=== PATIENT | male | born 1975 | race Caucasian/White ===

== ENCOUNTER → 2020-11-07 08:16 | Outpatient (REF) | payer BC, SELFPAY | LOC: ANHLAB 08:16 | PROVIDERS: PCP Family Medicine; Visit Provider Nurse Practitioner | DX: L57.0 Actinic keratosis (principal) | CPT/HCPCS: 88305 ==

== ENCOUNTER 2020-11-14 19:54 | Emergency (ER) | payer BC, SELFPAY ==
[2020-11-14 19:54] VITALS: BP 170/90; PULSE 105; RESP 20; TEMP 37.9; O2SAT 97
--- NOTE | 2020-11-14 20:02 | ED.GENADULT ---
HPI - General Adult General Chief complaint: Chest Pain Stated complaint: Chest pains Time Seen by Provider: 11/14/20 20:02 Source: patient and RN notes reviewed Mode of arrival: ambulatory Limitations: no limitations History of Present Illness HPI narrative: 45-year-old male presents with complaints of stabbing mid-sternum chest pain with intermittent radiating pain up neck and into left armpit, shortness of breath with activity for the past 6 hours. ?Isaias reports awakening at 02:00AM with the urge to have a bowel movement, sweating, and nausea. ?History of Hypertension, diabetes, and hypercholesteremia. Chest pain continued throughout the day with increasing fatigue, he remained in office with light activity. ?No treatment. ?No exacerbating factors expressed. ?No family history of sudden at age 36, maternal uncle, mother has had 2 [place] first at age 55. ?Denies fever or chills. Denies vomiting, diarrhea, or abdominal pain. ?Denies leg swelling, or dizziness. ?The patient reports he has not been diagnosed with COVID-19. The patient reports he is not waiting for the results of a COVID-19 lab test.??Denies recent traveling.? Denies concerns for COVID-19 or exposures.? At this time, the patient is not suspected of having COVID-19. Some parts of this dictation were generated by voice recognition software and may contain typographical and/or grammatical inaccuracies. Related Data Home Medications Medication Instructions Recorded Confirmed insulin aspart U-100 [Novolog 5 unit SUBCUT TID 11/14/20 11/14/20 U-100 Insulin aspart] insulin glargine [Lantus U-100 40 unit SUBCUT DAILY 11/14/20 11/14/20 Insulin] lisinopril 10 mg PO DAILY 11/14/20 11/14/20 Allergies Allergy/AdvReac Type Severity Reaction Status Date / Time acetaminophen [From Vicodin] Allergy Hallucinati Verified 11/14/20 20:02 ng hydrocodone [From Vicodin] Allergy Hallucinati Verified 11/14/20 20:02 ng Review of Systems Review of Systems: Narrative: CONSTITUTIONAL: Denies fever, chills, sweats. Complains of fatigue. EYES: Denies visual changes, redness, discharge. ENT: Denies rhinorrhea, congestion, sore throat, otalgia. CARDIOVASCULAR: Complains of stabbing mid-sternum chest pain with intermittent radiating pain up neck and into left armpit, diaphoresis. Denies palpitations, edema. RESPIRATORY: Complains of dyspnea on exertion. Denies wheezing, cough. GASTROINTESTINAL: Denies abdominal pain, nausea, vomiting, diarrhea. Complains of nausea. SKIN: Denies rash or itching. MUSCULOSKELETAL: Denies acute back pain or myalgia. NEUROLOGIC: Denies numbness or focal weakness. PSYCHIATRIC: Denies anxiety or depression. All systems reviewed & are unremarkable except as noted in HPI and below. [facility] Past Medical History Medical History (Updated 11/15/20 @ 00:00 by Ceferino Graves) Diabetes Hypercholesteremia Hypertension Surgical History Surgical History (Updated 11/14/20 @ 20:31 by LUL Larsen) No significant past surgical history Family History Family History (Updated 11/14/20 @ 20:33 by LUL Larsen) Father Cirrhosis Mother Acute myocardial infarction, Onset Age: 55 Second at age 65 3 weeks ago per Isaias Smoker COPD (chronic obstructive pulmonary disease) Unknown , at the age of 37 from a heart attack Acute myocardial infarction Social History Social History (Updated 11/15/20 @ 07:24 by LUL Larsen) Smoking status: Never smoker Tobacco type: cigarettes Second hand tobacco smoke exposure: No Alcohol intake: current Substance use: never Substance use type: does not use Living arrangements: with family Occupation/Education: occupation Gender identity (if verbalized by the patient): Male Sexual Orientation (if Verbalized by the Patient): Straight or Heterosexual Comments At time of signature, agree with the nurse past medical, surgica
--- NOTE | 2020-11-14 20:25 | ECG_ITS ---
Measurements Intervals [place] Rate: 106 P: 22 WA: 172 QRS: 89 QRSD: 74 T: 38 QT: 302 QTc: 401 Interpretive Statements SINUS TACHYCARDIA POSSIBLE LEFT ATRIAL ENLARGEMENT ABNORMAL ECG Electronically Signed On 11-15-2020 8:15:11 CDT by Conrad Brown D.O.
== END 2020-11-14 20:23 | disposition short-term general hospital (02) ==
PROVIDERS: Emergency Provider Nurse Practitioner Family
DX: R07.9 Chest pain, unspecified (principal); E11.9 Type 2 diabetes mellitus without complications; E78.00 Pure hypercholesterolemia, unspecified; I10 Essential (primary) hypertension; Z79.4 Long term (current) use of insulin
CPT/HCPCS: 93005; 99213; G0463

== ENCOUNTER → 2020-12-19 14:53 | Outpatient (REF) | payer BC, SELFPAY | LOC: ANHLAB 14:53 | PROVIDERS: PCP Family Medicine; Visit Provider Nurse Practitioner | DX: D22.72 Melanocytic nevi of left lower limb, including hip (principal) | CPT/HCPCS: 88305; 88342 ==

== ENCOUNTER → 2021-05-30 09:20 | Outpatient (CLI) | payer BC, SELFPAY ==
[2021-05-31 13:33] LABS: SARS-CoV-2 RNA PCR Positive
== END ==
PROVIDERS: PCP Family Medicine; Visit Provider Family Medicine
DX: U07.1 COVID-19 (principal)
CPT/HCPCS: C9803; U0003; U0005

== ENCOUNTER 2022-03-01 13:00 | Outpatient (NON) | payer BC, SELFPAY | END 2022-03-01 13:01 | disposition home or self-care (01) | PROVIDERS: PCP Family Medicine; Visit Provider Nurse Practitioner | DX: D22.72 Melanocytic nevi of left lower limb, including hip (principal) | CPT/HCPCS: 88305; 88342 ==

== ENCOUNTER → 2022-06-29 09:36 | Outpatient (CLI) | payer BC, SELFPAY ==
--- NOTE | ~2022-06-29 | XR_ITS ---
EXAMINATION: XR shoulder LT min 2V DATE: 06/29/2022 09:57 INDICATION: Anterior left shoulder pain. TECHNIQUE: 4 views of left shoulder were obtained. COMPARISON: None. FINDINGS: Bone alignment is normal. No fracture. The glenohumeral joint is normal. There is mild acro mioclavicular joint osteoarthritis. IMPRESSION: 1. Mild left acromioclavicular joint osteoarthritis. Reviewed, dictated and finalized at location A. ING COORDINATOR
== END ==
PROVIDERS: PCP Nurse Practitioner Family; Visit Provider Nurse Practitioner Family
DX: M19.012 Primary osteoarthritis, left shoulder (principal)
CPT/HCPCS: 73030

== ENCOUNTER 2022-07-24 08:27 | Outpatient (CLI) | payer BC, SELFPAY ==
--- NOTE | ~2022-07-24 | US_ITS ---
EXAMINATION: US art doppler w press LE DATE: 07/24/2022 09:30 HOLLOW TILE PARTITION ERECTOR INDICATION: Peripheral arterial disease. TECHNIQUE: Segmental pressures and plethysmographic and Doppler waveforms of the brachial and lower e xtremity arteries were obtained. COMPARISON: None. FINDINGS: Right and left brachial artery pressures of 128 mm Hg and 134 mm Hg, respectively, are concordant (no rmal difference <= 30 mmHg). The right high-thigh pressure index is 1.33 (normal > 1.2). The right ankle-brachial index (ALEXANDRA) is 1 .37 (normal >= 0.9-1.0). The right great toe-brachial index (TBI) is 0.75 (normal >= 0.60). The right lower extremity segmental pressure gradients are normal (normal gradients <= 20-30 mmHg between madan cent levels on the same leg or the same levels on the two legs). Arterial Doppler waveforms are bipha sic. The left high-thigh pressure index is not calculated. The left ALEXANDRA is 1.34. The left TBI is 0.82. The left lower extremity segmental pressure gradients are normal. Arterial Doppler waveforms are biphasi c and triphasic. IMPRESSION: 1. Normal bilateral lower extremity arterial Doppler. Reviewed, dictated and finalized at location L. OW TILE PARTITION ERECTOR
== END 2022-07-24 08:28 | disposition home or self-care (01) ==
PROVIDERS: PCP Family Medicine; Visit Provider Podiatrist Foot & Ankle Surgery
DX: I73.9 Peripheral vascular disease, unspecified (principal)
CPT/HCPCS: 93923

== ENCOUNTER 2022-08-09 12:04 | Emergency (ER) | payer BC, SELFPAY ==
[2022-08-09 12:11] VITALS: BP 118/74; PULSE 94; RESP 16; TEMP 36.4; O2SAT 97
--- NOTE | 2022-08-09 12:16 | ED.URI ---
HPI - URI/Sore Throat General Chief Complaint: Upper Respiratory Infection Stated Complaint: Cough/Chest Congestion Time Seen by Provider: 08/09/22 12:20 Source: patient and RN notes reviewed Mode of arrival: ambulatory Limitations: no limitations History of Present Illness HPI Narrative: 47-year-old male with history of type 1 diabetes, heart disease presents with concern for 4 day history of cough, fevers, of general malaise, body aches, nasal congestion and rhinorrhea. MD elicited complaint: fever, cough and rhinorrhea Related Data Home Medications Medication Instructions Recorded Confirmed subcutaneous insulin pump (MiniMed #1 ea 05/14/20 07/09/22 670G Insulin Pump) aspirin 81 mg tablet,delayed 81 mg PO DAILY 06/05/21 08/09/22 release (Adult Aspirin Regimen) Allergies Allergy/AdvReac Type Severity Reaction Status Date / Time hydrocodone Allergy Intermediate Hallucinati Verified 08/09/22 12:16 ons acetaminophen [From Vicodin] Allergy Hallucinati Verified 08/09/22 12:16 ng Review of Systems Review of Systems: CONSTITUTIONAL: Reports malaise, fever. EYES: Denies visual changes, redness, or discharge. ENT: Reports rhinorrhea, congestion. Denies sinus pain, otalgia and sore throat. CARDIOVASCULAR: Denies chest pain, palpitations, or edema. RESPIRATORY: Reports cough. Denies dyspnea. GASTROINTESTINAL: Denies abdominal pain, nausea, vomiting, diarrhea SKIN: Denies rash or itching. MUSCULOSKELETAL: Reports myalgia. NEUROLOGIC: Reports headache. All systems reviewed & are unremarkable except as noted in HPI and below PMFSH Past Medical History Medical History (Updated 08/09/22 @ 12:47 by Aiyana Buckley NP) Acute non-recurrent maxillary sinusitis Anemia Atherosclerotic heart disease of [place] coronary artery without angina pectoris (11/16/20) 3 Drug-eluting stents placed in the LAD with multiple vessels with 75% lesions November,. 75% lesion in the 2nd diagonal and 3rd diagonal. 95% lesion of the distal circumflex. Ejection fraction 60% Dr. Go Aly on 11/16/2020. Cardiac catheterization 01/13/2022 with stents in the LAD with 30% lesion in the mid LAD with normal circumflex and right coronary artery. normal arterial Doppler study of the lower extremities 07/24/2022. BMI 27.0-27.9,adult Chest pain COVID-19 positive home test 05/28/2021 , PCR positive 05/30/2021 Diabetes Diabetic retinopathy associated with type 1 diabetes mellitus Encounter for prostate cancer screening Epigastric abdominal tenderness Hypercholesteremia Hypertension Left shoulder pain Male erectile dysfunction, unspecified Mixed hyperlipidemia total cholesterol 256 with triglycerides 444 and HDL 35 on 11/15/2020 Neoplasm of skin of nose Protein in urine Sinusitis, acute Uncontrolled type 1 diabetes mellitus with hyperglycemia, with long-term current use of insulin Viral syndrome Surgical History Surgical History History of heart artery stent 11/2020 Family History Family History Father Cirrhosis Mother Acute myocardial infarction, Onset Age: 55 Second at age 65 3 weeks ago per Isaias Smoker COPD (chronic obstructive pulmonary disease) Unknown , at the age of 37 from a heart attack Acute myocardial infarction Other Family history of chronic obstructive pulmonary disease Family history of liver disease Hypertension Social History Social History Smoking status: Never smoker Second hand tobacco smoke exposure: No Alcohol intake: current Alcohol use details: Very Rarely Substance use: never Substance use type: does not use Lack of Transportation: No Lack of Food: Never True Current Housing: I Have Housing Concerned About Future Housing: No Difficulty Paying Gas/Electric Bills:
== END 2022-08-09 12:54 | disposition home or self-care (01) ==
PROVIDERS: Emergency Provider Nurse Practitioner; PCP Family Medicine
DX: J06.9 Acute upper respiratory infection, unspecified (principal); I10 Essential (primary) hypertension; E10.9 Type 1 diabetes mellitus without complications; I25.10 Atherosclerotic heart disease of native coronary artery without angina pectoris; Z79.82 Long term (current) use of aspirin; Z20.822 Contact with and (suspected) exposure to COVID-19
CPT/HCPCS: 87081; 87426; 87804; 87880; 99213; C9803; G0463

== ENCOUNTER 2022-12-23 17:50 | Emergency (ER) | payer BC, SELFPAY ==
[2022-12-23 18:06] VITALS: BP 150/90; PULSE 102; RESP 22; TEMP 37.1; O2SAT 93
--- NOTE | 2022-12-23 18:18 | ED.URI ---
HPI - URI/Sore Throat General Chief Complaint: Upper Respiratory Infection Stated Complaint: Sore Throat/Cough Time Seen by Provider: 12/23/22 18:10 Source: patient, RN notes reviewed and old records reviewed Mode of arrival: ambulatory Limitations: no limitations History of Present Illness HPI Narrative: 47year old male who presents to express care with complaints of cough, sore throat, nasal congestion and post nasal drainage for 4 days with feeling feverish and Saturday which has resolved with body aches and chills which have also resolved. Patient reports that he has been nauseated for the past 2 days with increase nausea today. states especially nauseated if driving. Patient is Type I diabetic and has insulin pump, patient reports that appetite is decreased but has been drinking fluids. Patient reports at one interval he felt like his heart may of been skipping beats denies any present chest pain, denies any shortness of breath of dizziness. MD elicited complaint: sore throat and nasal congestion (post nasal congestion,) Onset (ago): day(s) (day 4) Pain scale (0-10): 2 Able to tolerate fluids by mouth: Yes Treatments prior to arrival: none Related Data Home Medications Medication Instructions Recorded Confirmed amlodipine 10 mg tablet mg 12/23/22 atorvastatin 80 mg tablet mg 12/23/22 blood-glucose sensor (Dex[employer] G6 12/23/22 12/23/22 Sensor device) blood-glucose transmitter (Dexcom 12/23/22 12/23/22 G6 Transmitter device) clopidogrel 75 mg tablet mg 12/23/22 furosemide 40 mg tablet mg 12/23/22 insulin aspart U-100 100 unit/mL 12/23/22 subcutaneous solution metoprolol succinate 100 mg mg PO 12/23/22 tablet,extended release 24 hr promethazine-DM 6.25 mg-15 mg/5 mL ml 12/23/22 oral syrup Allergies Allergy/AdvReac Type Severity Reaction Status Date / Time hydrocodone Allergy Intermediate Hallucinati Verified 11/21/22 14:46 ons acetaminophen [From Vicodin] Allergy Hallucinati Verified 11/21/22 14:46 ng Review of Systems Review of Systems: CONSTITUTIONAL:Reports general malaise,initial chills, sweats,no known fever. EYES: Denies visual changes, redness, or discharge. ENT: Reports rhinorrhea, congestion, no sinus pain, no otalgia positive for sore throat. CARDIOVASCULAR: Denies chest pain, palpitations, or edema. RESPIRATORY: Reports cough.? Denies dyspnea. GASTROINTESTINAL: Denies abdominal pain,reports some nausea, no vomiting, no diarrhea SKIN: Denies rash or itching. MUSCULOSKELETAL: Denies any present myalgia. NEUROLOGIC: Denies headache. All systems reviewed & are unremarkable except as noted in HPI and below PMFSH Past Medical History Medical History Acute non-recurrent maxillary sinusitis Adhesive capsulitis of left shoulder Anemia Atherosclerotic heart disease of [place] coronary artery without angina pectoris (11/16/20) 3 Drug-eluting stents placed in the LAD with multiple vessels with 75% lesions November,. 75% lesion in the 2nd diagonal and 3rd diagonal. 95% lesion of the distal circumflex. Ejection fraction 60% Dr. Go Aly on 11/16/2020. Cardiac catheterization 01/13/2022 with stents in the LAD with 30% lesion in the mid LAD with normal circumflex and right coronary artery. normal arterial Doppler study of the lower extremities 07/24/2022. BMI 27.0-27.9,adult Chest pain CKD (chronic kidney disease) COVID-19 positive home test 05/28/2021 , PCR positive 05/30/2021 Diabetes Diabetic retinopathy associated with type 1 diabetes mellitus Encounter for prostate cancer screening Epigastric abdominal tenderness Hypercholesteremia Hypertension Left shoulder pain Male erectile dysfunction, unspecified Mixed hyperlipidemia total cholesterol 256 with triglycerides 444 and HDL 35 on 11/15/2020 Neoplasm of skin of nose Protein in urine Sinusitis, acute Uncontrolled type 1 diabetes mellitus wi
[2022-12-23] MEDS: ONDANSETRON HCL ODT 4 MG TABLET SUBLINGUAL (18:35)
== END 2022-12-23 18:45 | disposition home or self-care (01) ==
PROVIDERS: Emergency Provider Registered Nurse; PCP Family Medicine
DX: J06.9 Acute upper respiratory infection, unspecified (principal); R11.0 Nausea; Z20.822 Contact with and (suspected) exposure to COVID-19; I25.10 Atherosclerotic heart disease of native coronary artery without angina pectoris; I13.10 Hypertensive heart and chronic kidney disease without heart failure, with stage 1 through stage 4 chronic kidney disease, or unspecified chronic kidney disease; E10.22 Type 1 diabetes mellitus with diabetic chronic kidney disease; N18.9 Chronic kidney disease, unspecified; Z79.4 Long term (current) use of insulin; E10.319 Type 1 diabetes mellitus with unspecified diabetic retinopathy without macular edema; E78.00 Pure hypercholesterolemia, unspecified; E78.2 Mixed hyperlipidemia; Z85.828 Personal history of other malignant neoplasm of skin; Z86.16 Personal history of COVID-19; Z95.5 Presence of coronary angioplasty implant and graft
CPT/HCPCS: 87081; 87426; 87880; 99213; A9270; C9803; G0463

== ENCOUNTER 2023-06-22 11:05 | Emergency (ER) | payer BC, SELFPAY ==
--- NOTE | ~2023-06-22 | XR_ITS ---
XR chest 2V DATE: 06/22/2023 13:19 INDICATION: Cough for 3 days TECHNIQUE: 2 views COMPARISON: None FINDINGS: No pulmonary infiltrate or consolidation, pleural effusion or pulmonary vascular congestion or pneumothorax. Normal heart size. Probable aortic arch calcification. No hilar or mediastinal enla rgement. IMPRESSION: No active cardiopulmonary disease Reviewed, dictated and finalized at location A. SANDER
[2023-06-22 11:29] VITALS: BP 108/69; PULSE 79; RESP 16; TEMP 37.5; O2SAT 97
--- NOTE | 2023-06-22 12:28 | ED.GENADULT ---
HPI - General Adult General Chief complaint: Upper Respiratory Infection Stated complaint: Cough/Chest Congestion Source: patient Mode of arrival: ambulatory Limitations: no limitations History of Present Illness HPI narrative: Pt presents for evaluation of respiratory symptoms that he has experienced for the past three days. Primary complaint is productive cough of clear sputum. Occasionally he has some mild shortness of breath. No fever, chills, nausea, vomiting. He does have some discomfort in his throat and some mild pain in his ears. His has a cough as well. He is diabetic and has an insulin pump. Blood sugars are normally within normal range, however this morning his readings were in the 150s. He has a history of cardiac stents x3. He was admitted to the hospital last year with chest pain. Cardiac intervention was postponed due to blood in his stool. He underwent a colonoscopy, at which time colon cancer was identified. He had of partial colectomy performed at the end of last month. He does not smoke. Related Data Home Medications Medication Instructions Recorded Confirmed blood-glucose sensor (Dexcom G6 12/23/22 01/16/23 Sensor device) atorvastatin 80 mg tablet 80 mg PO QHS 01/16/23 01/16/23 furosemide 40 mg tablet 40 mg PO QAM 01/16/23 01/16/23 metoprolol succinate 100 mg 100 mg PO DAILY 01/16/23 01/16/23 tablet,extended release 24 hr isosorbide mononitrate 60 mg 60 mg PO DAILY 04/26/23 tablet,extended release 24 hr pantoprazole 40 mg tablet,delayed 40 mg PO BID 04/26/23 release (Protonix) Allergies Allergy/AdvReac Type Severity Reaction Status Date / Time hydrocodone Allergy Intermediate Hallucinati Verified 06/22/23 11:46 ons acetaminophen [From Vicodin] Allergy Hallucinati Verified 06/22/23 11:46 ng Review of Systems Review of Systems: CONSTITUTIONAL: Denies fever, chills, or sweats. EYES: Denies visual changes, redness, or discharge. ENT: Reports discomfort in his throat and both ears CARDIOVASCULAR: Denies chest pain, palpitations, or edema. RESPIRATORY: Reports productive cough of clear sputum and mild SOB GASTROINTESTINAL: Denies abdominal pain, nausea, vomiting, or diarrhea. GENITOURINARY: Denies dysuria or hematuria. SKIN: Denies rash or itching. MUSCULOSKELETAL: Denies back pain, joint pain, or myalgia. NEUROLOGIC: Denies headache, numbness, dizziness, or weakness. PSYCHIATRIC: Denies anxiety or depression. [facility] Past Medical History Medical History Actinic keratosis Acute non-recurrent maxillary sinusitis Adenocarcinoma of sigmoid colon well differentiated adenocarcinoma of the sigmoid colon on biopsy 05/02/2023. Laparoscopic sigmoidectomy 05/29/2023. Adhesive capsulitis of left shoulder Anemia Hemoglobin normal at 13.3 with iron 91, 28% saturation, ferritin 379, vitamin B12 456 with folic acid 10.9 on 08/01/2022. Anxiety (~05/07/23) Atherosclerotic heart disease of [place] coronary artery without angina pectoris (11/16/20) 3 Drug-eluting stents placed in the LAD with multiple vessels with 75% lesions November,. 75% lesion in the 2nd diagonal and 3rd diagonal. 95% lesion of the distal circumflex. Ejection fraction 60% Dr. Go Aly on 11/16/2020. Cardiac catheterization 01/13/2022 with stents in the LAD with 30% lesion in the mid LAD with normal circumflex and right coronary artery. normal arterial Doppler study of the lower extremities 07/24/2022. Benign mole Blood blister BMI 27.0-27.9,adult BMI 28.0-28.9,adult Bug bite Drew angioma Chest pain CKD (chronic kidney disease) BUN 27, creatinine 1.62 with GFR 53 on 08/01/2022 [place] [id number] Colonic mass (04/24/23) oozing mass sigmoid colon 04/24/2023. Repeat colonoscopy on 03/01/2023 with biopsy of the mass. COVID-19 positive home test 05/28/2021 , PCR positive 05/30/2021 Dermatofibroma Diabetes Diabetic retino
--- NOTE | 2023-06-22 12:49 | PC.NURSE ---
1243 report to lety herrera. [facility] no tech at [facility] today. no change in status while at [facility].
--- NOTE | 2023-06-22 13:26 | PC.NURSE ---
1300- RN to RN report received from Valerie Humphrey. Pt transferred to [place] facility for Xray
== END 2023-06-22 13:32 | disposition home or self-care (01) ==
PROVIDERS: Emergency Provider Nurse Practitioner; PCP Family Medicine
DX: J06.9 Acute upper respiratory infection, unspecified (principal); Z20.822 Contact with and (suspected) exposure to COVID-19; I25.10 Atherosclerotic heart disease of native coronary artery without angina pectoris; I13.10 Hypertensive heart and chronic kidney disease without heart failure, with stage 1 through stage 4 chronic kidney disease, or unspecified chronic kidney disease; E10.22 Type 1 diabetes mellitus with diabetic chronic kidney disease; N18.9 Chronic kidney disease, unspecified; Z86.16 Personal history of COVID-19; K21.9 Gastro-esophageal reflux disease without esophagitis; E78.2 Mixed hyperlipidemia; E10.319 Type 1 diabetes mellitus with unspecified diabetic retinopathy without macular edema; Z79.4 Long term (current) use of insulin; Z85.038 Personal history of other malignant neoplasm of large intestine; Z85.828 Personal history of other malignant neoplasm of skin; Z95.5 Presence of coronary angioplasty implant and graft
CPT/HCPCS: 71046; 87081; 87426; 87804; 87880; 99213; G0463

== ENCOUNTER 2024-05-06 08:09 | Outpatient (CLI) | payer BC, SELFPAY ==
[2024-05-28 16:25] VITALS: BMI 28.1
--- NOTE | 2024-05-28 16:25 | WPDHOMESLEEP ---
Sleep Study - Home Unattended Date of Study: 05/06/24 Ordering Provider: KWESI Banda Interpreting Provider: Sneha Stevens DO Home Sleep Study Type: Watch PAT Height: 1.73 m Weight: 83.915 kg Body Mass Index: 28.1 Neck Circumference (inches): 17.5 Warriors Mark: 0 Reason for Sleep Study Snoring Sleep History The patient is a 48 year old male that had a sleep study ordered by the pulmonary group for evaluation of sleep apnea. The patient did not complete the sleep questionnaire. FORMERLY [facility], [facility] Past Medical History Medical History Proliferative diabetic retinopathy associated with type 1 diabetes mellitus proliferative diabetic retinopathy 09/13/2023. Proliferative retinopathy OS with nonproliferative retinopathy OD on 12/10/2023. retinopathy on 02/21/2024. Mild peripheral edema likely secondary to amlodipine Adenocarcinoma of sigmoid colon well differentiated adenocarcinoma of the sigmoid colon on biopsy 05/02/2023. Laparoscopic sigmoidectomy 05/29/2023. CEA at 2.2 on 12/19/2023. Insomnia (~05/07/23) Anxiety (~05/07/23) GERD (gastroesophageal reflux disease) EGD 05/01/2023 with esophagitis and gastritis with biopsies taken. Colonic mass (04/24/23) oozing mass sigmoid colon 04/24/2023. Repeat colonoscopy on 03/01/2023 with biopsy of the mass. BMI 28.0-28.9,adult Overweight (BMI 25.0-29.9) CKD (chronic kidney disease) BUN 27, creatinine 1.62 with GFR 53 on 08/01/2022 [place] [id number]. BUN 10, creatinine 1.50 with GFR 56 on 06/01/2023. BUN 36, creatinine 2.30 with GFR 34 on 12/19/2023. Adhesive capsulitis of left shoulder Epigastric abdominal tenderness Chest pain Anemia Hemoglobin normal at 13.3 with iron 91, 28% saturation, ferritin 379, vitamin B12 456 with folic acid 10.9 on 08/01/2022. Left shoulder pain Atherosclerotic heart disease of [place] coronary artery without angina pectoris (11/16/20) 3 Drug-eluting stents placed in the LAD with multiple vessels with 75% lesions November,. 75% lesion in the 2nd diagonal and 3rd diagonal. 95% lesion of the distal circumflex. Ejection fraction 60% Dr. Go Aly on 11/16/2020. Cardiac catheterization 01/13/2022 with stents in the LAD with 30% lesion in the mid LAD with normal circumflex and right coronary artery. normal arterial Doppler study of the lower extremities 07/24/2022. COVID-19 positive home test 05/28/2021 , PCR positive 05/30/2021 Hypertension Diabetes Actinic keratosis Bug bite Drew angioma Dermatofibroma Benign mole Blood blister Skin neoplasm Skin cancer screening BMI 27.0-27.9,adult Sinusitis, acute Neoplasm of skin of nose Protein in urine Acute non-recurrent maxillary sinusitis Encounter for prostate cancer screening PSA 0.54 on 08/01/2022. PSA 0.73 on 12/19/2023. Viral syndrome Male erectile dysfunction, unspecified Mixed hyperlipidemia total cholesterol 256 with triglycerides 444 and HDL 35 on 11/15/2020. 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 and continuous glucose monitor Dietary counseling and surveillance Type 1 diabetes mellitus without complications Surgical History Surgical History History of heart artery stent 11/2020 Family History Family History Father Cirrhosis Mother Acute myocardial infarction, Onset Age: 55 Second at age 65 3 weeks ago per Isaias Smoker COPD (chronic obstructive pulmonary disease) Unknown , at the age of 37 from a heart attack Acute myocardial infarction Other Family history of chronic obstructive pulmonary disease Family history of liver disease Hypertension Social History Social History Smoking status: Never smoker Second hand tobacco smoke exposure: No Alcohol intake: current Alcohol use details: Very Rarely Substance use: never Substance use type: does not use Lack of Transportation: No Lack of Food: Never True Current Housing: I Have Housing Concerned About Future Housing: No Difficulty Paying Gas/Electric Bills: No Difficulty Paying for Meds: No Currently Unemployed: No Education: High School Diploma/GED Difficulty w/ Childcare or Family Care: No Living arrangements: with family Occupation/Education: occupation 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 Gender identity (if verbalized by the patient): Male Sexual Orientation (if Verbalized by the Patient): Straight or Heterosexual Medications Home Medications ?Medication ?Instructions ?Recorded ?Confirmed ?Type amlodipine 10 mg tablet 10 mg PO DAILY #90 tabs 01/16/23 02/18/24 Rx isosorbide mononitrate 60 mg 60 mg PO DAILY 04/26/23 02/18/24 History tablet,extended release 24 hr furosemide 40 mg tablet 40 mg PO QAM #90 tabs 01/13/24 02/18/24 Rx atorvastatin 80 mg tablet 80 mg PO QHS #90 tabs 04/23/24 04/23/24 Rx blood-glucose sensor (DexGreenDust G7 #9 ea 04/23/24 04/23/24 Rx Sensor device) insulin aspart U-100 100 unit/mL See Rx Instructions .Route 04/23/24 04/23/24 Rx subcutaneous solution .COMPLEX Insulin pump #120 mL omeprazole 40 mg capsule,delayed 40 mg PO DAILY laryngopharyngeal 04/27/24 Rx release reflux #30 caps Sleep Procedure The sleep study was completed using [employer] a technically adequate device with seven channels: peripheral arterial tone, actigraphy, body position, snore, respiratory movement, pulse oximetry, sleep staging, and heart rate. Prior to using the device, the patient received verbal and written instructions for its application and was provided with the help desk phone number for additional telephonic instruction with 24-hour availability of qualified personnel to answer questions. The study was scored using CMS guidelines. Sleep Architecture The total recording time is 9 hrs, 43 min. The total sleep time is 7 hrs, 58 min. Sleep latency is 17 minutes. REM latency is 104 minutes. The patient had 16 episodes of waking. Sleep architecture shows 15.3% deep sleep, 71.9% light sleep, and (as % Total Sleep Time) showed NREM (Light 71.9%; Deep 15.3%), and a 12.9% stage REM. The patient spent 93.0% of total sleep time in the supine position. Sleep efficiency was 81.99. Respiratory Analysis The overall AHI (pAHI 4%:) is 24.9. The central AHI is 2.9. The AHI was 19.4 in NREM and 61.9 in REM sleep. The AHI was 26.4 in Supine and 5.4 in Non-supine sleep. Percent of [place] respirations is 0.0. Oximetry Data The oxygen desaturation index (DAVID 4%:) is 23.8. The mean saturation is 95%, and the lowest saturation is 76%. Time spent with saturation < 88% is 7.4 minutes. Snoring Profile Snoring average intensity is 43 dB. The patient snored above 45 decibels for 93.6 minutes, 19.6% of sleep time. Cardiac Profile The average pulse rate is 61 beats per minutes. The lowest pulse rate is 47 bpm. The highest pulse rate reported is 88 bpm. Atrial fibrillation was not detected. Premature beats occur <0.1 per minute. Assessment and Plan Assessment and Plan (1) FRACNINE (obstructive sleep apnea): Code(s): G47.33 - Obstructive sleep apnea (adult) (pediatric) Status: Acute Assessment and Plan: The patient had an overall AHI of 24.9 with desaturation down to 76. This is consistent with moderate sleep apnea. I recommend that the patient be prescribed Resmed AutoPAP 5-15 cm H2O, CPAP mask/filters/tubing and heated humidity. This should be used with all episodes of sleep.? Compliance should be reviewed within 31-90 days of starting therapy for usage greater than 4 hours per night greater than 70% of the nights. The patient should be asked about symptoms such as?excessive daytime sleepiness, quality of sleep, decreased nocturia, increased?mental functioning such as memory, mood, and concentration. Data The data obtained during this sleep study is adequate for interpretation. Certification This sleep study has been reviewed by a board certified sleep medicine physician.
== END 2024-05-07 13:12 | disposition home or self-care (01) ==
PROVIDERS: PCP Family Medicine; Visit Provider Physician Assistant
DX: G47.33 Obstructive sleep apnea (adult) (pediatric) (principal); G47.10 Hypersomnia, unspecified
CPT/HCPCS: 95800